=== PATIENT | male | born 1980 | race Caucasian/White ===

== ENCOUNTER 2020-02-19 09:23 | Emergency (ER) | payer OTHER ==
--- NOTE | 2020-02-19 09:43 | UC ---
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 Over the past 2-3 months he has had some left shoulder pain which occasionally flares up with the type of work that he does and if he does a lot of repetitive motion. He states that over the past couple weeks he has a feeling of pins and needles in his fingers mostly of his left hand. He has been out of work the past 3 weeks but is been doing a lot of work at home which involves repetitive motion and construction. He denies any difficulty breathing, no recent illness. He has no family members who have a cardiac history before the age of 50. - History of Current Complaint Stated Complaint: LT SHOULDER INJURY Time Seen by Provider: 02/19/20 09:42 Hx Obtained From: Patient Onset/Duration: Gradual Onset, Other - Intermittently over the past 2-3 months. Timing: Intermittent Episode Lasting - Patient notices a feeling of pins and needles in the fingers of his left hand when he is doing more repetitive motion and more construction work. Severity Initially: Mild Severity Currently: Mild Character: Aching, Spasmodic Aggravating Factor(s): Movement Alleviating Factor(s): Rest Associated Signs And Symptoms: Positive: Numbness/Tingling Related History: Dominant Hand Right - Allergies/Home Medications Allergies/Adverse Reactions: Allergies Allergy/AdvReac Type Severity Reaction Status Date / Time No Known Allergies Allergy Verified 02/19/20 09:49 Home Medications: Home Medications Multivitamin [Multivitamins] 1 cap PO DAILY 02/19/20 [History Confirmed 02/19/20 ] PMH/Surg Hx/FS Hx/Imm Hx Previously Healthy: Yes Review of Systems All Other Systems Reviewed And Are Negative: Yes Musculoskeletal: Positive: Other: - Patient feels more discomfort in the left trapezius muscle area with range of motion Is Patient Immunocompromised?: No Physical Exam Triage Information Reviewed: Yes Appearance: Well-Appearing, No Pain Distress, Well-Nourished Vital Signs Reviewed: Yes Neck: Positive: Supple, Nontender, No Lymphadenopathy Respiratory: Positive: Chest non-tender, Lungs clear, Normal breath sounds, No respiratory distress Cardiovascular: Positive: RRR, No Murmur, Pulses Normal, Brisk Capillary Refill Musculoskeletal Exam: Normal Musculoskeletal: Positive: Strength Intact, ROM Intact, Other: - Good peripheral pulses, neuro sensation and capillary refill. Full range of motion. 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 Mild tenderness on palpation left trapezius muscle. No erythema, bruising, swelling or deformity is noted. Neurological: Positive: Alert, Muscle Tone Normal Psychological Exam: Normal Skin Exam: Normal Shoulder Course/Dx - Course Course Of Treatment: Pt is comfortable here. Left shoulder x-ray:FINDINGS: BONE DENSITY: Normal. BONES: There is no displaced fracture. JOINTS: There is no arthropathy. ALIGNMENT: There is no dislocation. SOFT TISSUES: Unremarkable. OTHER FINDINGS: None. IMPRESSION: NO ACUTE OSSEOUS INJURY. IF SYMPTOMS PERSIST, RECOMMEND REPEAT IMAGING. We talked about following up with his primary care provider, an orthopedist as well as a neurologist. Because of his insurance he will probably have to go through his primary care provider for preauthorization and he is aware of that and will call her office on Friday. - Differential Dx/Diagnosis Provider Diagnosis: Strain of left trapezius muscle Discharge ED - Sign-Out/Discharge Documenting (check all that apply): Patient Departure All imaging exams completed and their final reports reviewed: Yes - Discharge Plan Condition: Good Disposition: HOME Patient Education Materials: Muscle Strain (DC), Paresthesia (ED) Referrals: Bertha Torres MD [Medical Doctor] - Ambrocio Gruber MD [Medical Doctor] - Bryson Campos PA [Primary Care Provider] - Svetlana Mota MD [Medical Doctor] - Additional Instructions: Continue to apply warm moist compresses to the sore area, continue ibuprofen every 8 hours for pain. Avoid repetitive motion and avoid movements that cause pain. Definite follow-up with your primary care provider who will more than likely refer you to an orthopedist for further care, and/or to a neurologist. - Billing Disposition and Condition Condition: GOOD Disposition: Home - Attestation Statements Provider Attestation: This patient was not seen by me. I was available for consult. Chart reviewed. WANDA
[2020-02-19 09:49] VITALS: BP 137/99
== END 2020-02-19 10:38 | disposition home or self-care (01) ==
LOC: UCCORT 09:23
DX: S46.812A Strain of other muscles, fascia and tendons at shoulder and upper arm level, left arm, initial encounter (principal); X50.3XXA Overexertion from repetitive movements, initial encounter; Y92.9 Unspecified place or not applicable
CPT/HCPCS: 99201; G0463